=== PATIENT | female | born 1950 | race Caucasian/White ===

== ENCOUNTER → 2018-05-22 10:23 | Outpatient (CLI) | payer MEDICARE, OTHER, SELFPAY ==
[2018-05-21 14:14] VITALS: BMI 28.1
[2018-05-27 12:36] LABS: HPV Reflexed? NOT INDICATED
== END ==
PROVIDERS: Family Provider Family Medicine; PCP Family Medicine; Referring Provider Family Medicine; Visit Provider Family Medicine
DX: Z01.419 Encounter for gynecological examination (general) (routine) without abnormal findings (principal)
CPT/HCPCS: 88175; G0145

== ENCOUNTER → 2019-02-23 | Outpatient (CLI) | payer MEDICARE, OTHER, SELFPAY ==
[2019-02-23 10:35] VITALS: BMI 28.1
--- NOTE | 2019-02-23 11:23 | EKG12_ITS ---
Test Reason : ROUTINE Blood Pressure : / mmHG Vent. Rate : 064 BPM Atrial Rate : 064 BPM P-R Int : 136 ms QRS Dur : 126 ms QT Int : 426 ms P-R-T Axes : 034 -01 009 degrees QTc Int : 439 ms Normal sinus rhythm Right bundle branch block Abnormal ECG Confirmed by DEANDRE SPRINGER, CLINT ([id number]), research editor CHANTALE WILKINSON ([id number]) on 02/24/2019 8:41:21 AM Referred By: Storm Gary Confirmed By:CLINT CARRERA MD
== END | disposition home or self-care (01) ==
LOC: CVS 11:21
PROVIDERS: Family Provider Family Medicine; PCP Family Medicine; Referring Provider Family Medicine; Visit Provider Family Medicine
DX: R07.9 Chest pain, unspecified (principal)
CPT/HCPCS: 93005

== ENCOUNTER → 2019-03-15 | Outpatient (CLI) | payer MEDICARE, OTHER, SELFPAY ==
[2019-03-15 11:13] VITALS: BMI 28.1
[2019-03-16 14:30] LABS: Probe Check PASS; Sample Adequacy Control PASS; Specimen Processing Control PASS; Trichomonas Vag DNA by PCR Negative (Negative)
[2019-03-16 14:45] LABS: Chlamydia Trachomatis by PCR Negative (Negative); Neisserai gonorrhoeae by PCR Negative (Negative); Probe Check PASS; Sample Adequacy Control PASS; Specimen Processing Control PASS
== END | disposition home or self-care (01) ==
LOC: BIMLAB 03-16 08:23
PROVIDERS: Family Provider Family Medicine; PCP Family Medicine; Visit Provider Internal Medicine
DX: N89.8 Other specified noninflammatory disorders of vagina (principal); Z71.1 Person with feared health complaint in whom no diagnosis is made
CPT/HCPCS: 87491; 87591; 87661

== ENCOUNTER → 2019-04-02 06:41 | Outpatient (CLI) | payer MEDICARE, OTHER, SELFPAY ==
[2019-02-23 10:35] VITALS: BMI 28.1
[2019-03-15 11:13] VITALS: BMI 28.1
--- NOTE | 2019-04-02 13:33 | STRESSREP ---
Stress Test Report Exercise myocardial perfusion stress test. 69-year-old lady with a history of chest pain. Stress protocol: Resting EKG demonstrates normal sinus rhythm with a rate of 70 bpm normal intervals are noted resting blood pressures 114/72 mmHg. Right bundle branch block is noted. The patient exercised according to regular Ariel protocol for total duration of 6 minutes and 30 seconds. The maximum heart rate attained was 146 bpm which is 96% maximum predicted heart rate and maximum workload was 7.7 metabolic equivalents. Patient maintained sinus rhythm throughout the recording. At rest there were no ST or T wave changes noted suggest ischemia peak exercise upsloping ST changes only were noted with no meet the criteria for ischemia. No clinical angina was noted. The resting blood pressures 114/72 with a peak blood pressure 162/78 mmHg. Myocardial perfusion protocol. 10.0 mCi of technetium 99m sestamibi was injected at rest. The patient exercised according to regular Ariel protocol for 6-1/2 minutes at peak exercise 30.0 mCi of technetium 99m sestamibi was injected stress images were obtained stress and rest images were reconstructed and compared in the short axis vertical long horizontal long axis. Gated images were also obtained Perfusion SPECT analysis: Review of the stress images demonstrate normal uptake of tracer noted in all areas of the myocardium the resting images similar demonstrate normal uptake of tracer noted in all areas of myocardium. No areas of reversibility or no suggest ischemia no previous infarct is noted. Gated SPECT analysis: The gated ejection fraction is noted to be 89%. Conclusion: Normal exercise myocardial perfusion stress test at a moderate workload. Preserved ejection fraction.
== END ==
PROVIDERS: Family Provider Family Medicine; PCP Family Medicine; Referring Provider Family Medicine; Visit Provider Family Medicine
DX: R07.9 Chest pain, unspecified (principal)
CPT/HCPCS: 78452; 93017; A9500; A4216

== ENCOUNTER → 2019-04-06 12:10 | Outpatient (CLI) | payer MEDICARE, OTHER, SELFPAY ==
[2019-04-06 11:15] VITALS: BMI 28.1
--- NOTE | 2019-04-06 12:12 | RAD_ITS ---
HISTORY: MEDIAL ELBOW PAIN, OLD INJURY 3 YEARS AGO ACTING UP AGAIN EXAMINATION/TECHNIQUE: XR right elbow 3 views COMPARISON: None FINDINGS: No fracture or dislocation., Normal bony alignment. Joint spaces are preserved. No joint effusion identified. Moderately large hypertrophic spur of the olecranon process at the triceps tendon insertion. RAD/Elbow min 3 Views IMPRESSION: 1. No fracture or acute disease. No joint effusion identified. 2. Olecranon process degenerative spurring. 3. If symptoms persist and epicondylitis is a consideration, further correlation with MR exam could be obtained. at 0224 Reported and signed by: Zach Elena MD Electronically Signed: Zach Elena, at 2:23 EST Tel , Service support ,
== END ==
PROVIDERS: Family Provider Family Medicine; PCP Family Medicine; Referring Provider Family Medicine; Visit Provider Family Medicine
DX: M25.521 Pain in right elbow (principal)
CPT/HCPCS: 73080

== ENCOUNTER → 2019-07-27 | Outpatient (CLI) | payer MEDICARE, OTHER, SELFPAY ==
[2019-07-27 08:48] VITALS: BMI 28.1
== END | disposition home or self-care (01) ==
LOC: LABSPEC 11:00
PROVIDERS: PCP Family Medicine; Referring Provider Family Medicine; Visit Provider Family Medicine
DX: Z20.2 Contact with and (suspected) exposure to infections with a predominantly sexual mode of transmission (principal)

== ENCOUNTER → 2020-08-01 13:45 | Outpatient (CLI) | payer MEDICARE, SELFPAY ==
[2020-08-01 12:58] VITALS: BMI 28.9
[2020-08-01 15:32] LABS: Anion Gap 6 (5-15); BUN 21 mg/dL (7-18); Calcium,Total 9.5 mg/dL (8.5-10.1); Chloride 102 mmol/L (98-107); Creatinine, Serum 0.84 mg/dL (0.55-1.02); EST Glomerular Filtration Rate 71 mL/min (>60); Est Glom Filt Rate - Afr Amer 86 mL/min (>60); Glucose 83 mg/dL (74-106); Potassium 4.7 mmol/L (3.5-5.1); Sodium Level 137 mmol/L (136-145)
[2020-08-04 17:10] LABS: Chlamydia By Nucleic Acid AMP Negative (Negative)
[2020-08-04 20:33] LABS: Gonococcus By Nucleic Acid AMP Negative (Negative)
== END ==
PROVIDERS: PCP Family Medicine; Referring Provider Family Medicine; Visit Provider Family Medicine
DX: R35.0 Frequency of micturition (principal); Z20.2 Contact with and (suspected) exposure to infections with a predominantly sexual mode of transmission
CPT/HCPCS: 36415; 80048; 87491; 87591; 88175; G0145

== ENCOUNTER 2021-05-22 09:49 | Emergency (ER) | payer MEDICARE, SELFPAY ==
[2021-05-22 09:51] VITALS: BP 116/63; PULSE 107; RESP 24; TEMP 36.8; O2SAT 95; BMI 26.4
--- NOTE | 2021-05-22 10:22 | RAD_ITS ---
STUDY: X-RAY CHEST REASON FOR EXAM: Female, 71 years old. Increasing shortness of breath. Covid. TECHNIQUE: Single AP portable view of the chest. COMPARISON: None. FINDINGS: Mild bibasilar pulmonary infiltrates slightly worse on the left side. Calcified granuloma in the left lower lobe. There is no demonstrated pleural abnormality. Normal size heart. Normal mediastinum and kari. Normal visualized pulmonary arteries. Normal visualized aortic arch and descending thoracic aorta. Normal visualized thoracic spine. Normal visualized ribs, clavicles, and shoulders. Prior cholecystectomy. RAD/Chest 1 View (Portable) IMPRESSION: Mild degree of patchy bibasilar infiltrates worse on the left side. Electronically Signed: Anish Trevizo MD at 10:59 EST , Service support ,
[2021-05-22 11:32] LABS: Absolute Lymphocyte Count 3.08 X10^3/uL (0.83-4.51); Absolute Neutrophil Count 9.5 X10^3/uL (2.0-7.7); Basophil# 0.05 X10^3/uL; Basophil% 0.3 % (0-1); Eosinophil# 0.05 X10^3/uL; Eosinophils% 0.3 % (0-5); Hematocrit 41.2 % (37-47); Hemoglobin 13.6 g/dL (12.0-15.0); Lymphocyte # 3.08 X10^3/ul (0.83-4.51); Lymphocyte % 20.9 % (19-41); Mean Corpuscular Hgb 29.2 pg (27.0-32.0); Mean Corpuscular Volume 88.6 fL (81-99); Mean Platelet Vol. 10.6 fl (6.2-12.0); Monocyte# 1.98 X10^3/uL; Monocyte% 13.4 % (0-10); NRBC Flagged by Analyzer 0 % (0-5); Neutrophil # 9.51 X10^3/uL (2.7-7.7); Neutrophil % 64.6 % (47-70); POSITIVE DIFFERENTIAL YES; Platelet Count 375 K/mm3 (150-450); RBC Distribution Width SD 42.3 fl (35.1-43.9); Red Blood Count 4.65 M/mm3 (4.2-5.4); White Blood Count 14.8 K/mm3 (4.4-11.0)
[2021-05-22 11:33] LABS: Differential Indicated SCAN CRITERIA MET
[2021-05-22 11:47] LABS: ALB/GLOB Ratio 0.5 RATIO (0.9-2.4); AST(SGOT) 69 U/L (15-37); Alanine Aminotransfer ALT/SGPT 79 U/L (13-56); Albumin, Serum 2.7 g/dL (3.2-5.0); Alkaline Phosphatase 254 U/L (45-117); Anion Gap 7 (5-15); BUN 19 mg/dL (7-18); BUN/Creat Ratio 21.5 RATIO (10-20); Calcium,Total 9.7 mg/dL (8.5-10.1); Chloride 103 mmol/L (98-107); Creatinine, Serum 0.88 mg/dL (0.55-1.02); EST Glomerular Filtration Rate 67 mL/min (>60); Est Glom Filt Rate - Afr Amer 81 mL/min (>60); Estimated Creatinine Clearance 42.12 ml/min; Glucose 97 mg/dL (74-106); Potassium 4.5 mmol/L (3.5-5.1); Protein, Total 7.7 g/dL (6.4-8.2); Sodium Level 136 mmol/L (136-145)
--- NOTE | 2021-05-22 12:23 | EX.ED.DYSGE1 ---
HPI History of Present Illness Chief Complaint: Shortness of Breath Narrative Narrative: Patient was recently diagnosed with COVID. She is about day 9 of symptoms. She developed progressive weakness. Chief complaint says shortness of breath however patient does not have shortness of breath her main complaint is weakness and decreased p.o. intake. No fevers or chills. No back pain or tearing sensation, no chest pain or pleuritic component. No lower extremity edema or calf pain. PFSH PFS Medical History Acute otitis externa of left ear Acute otitis media, left Cataracts, bilateral Chronic bronchitis Chronic headaches GERD (gastroesophageal reflux disease) Hormone deficiency IBS (irritable bowel syndrome) Impacted cerumen, left ear Skin cancer Vision problems Home Medications Oscal PO DAILY 05/21/18 [History Last Taken Unknown] magnesium hydroxide 400 mg/5 mL oral suspension 5 ml PO QHS PRN 05/21/18 [History Last Taken Unknown] multivitamin 1 tab PO DAILY 05/21/18 [History Last Taken Unknown] elderberry fruit 200 mg capsule mg PO cap 04/06/19 [History Last Taken Unknown] esomeprazole magnesium 20 mg capsule,delayed release 20 mg PO DAILY 08/01/20 [History Last Taken Unknown] conjugated estrogens 1.25 mg tablet 2.5 mg PO DAILY #180 tab 10/11/20 [Rx Last Taken Unknown] benzonatate 100 mg capsule 100 mg PO TID PRN #30 cap 05/18/21 [Rx Last Taken Unknown] guaifenesin 400 mg tablet 400 mg PO TID PRN #30 tab 05/18/21 [Rx Last Taken Unknown] ondansetron 4 mg disintegrating tablet 4 mg PO Q8H PRN #15 tab 05/18/21 [Rx Last Taken Unknown] Allergy/AdvReac Type Severity Reaction Status Date / Time No Known Allergies Allergy Verified 05/22/21 09:54 Family History Other Arthritis Colon cancer Skin cancer Surgical History History of cataract extraction History of cholecystectomy History of hysterectomy Social History Smoking Status: Former smoker alcohol intake: never substance use type: does not use frequency: 3-4 times per week ROS ROS ED ROS Narrative Past medical history: Reviewed Medications: Reviewed Social history: Noncontributory Review of systems: All systems negative except as indicated General: No fever. Generalized weakness as in HPI Eyes: No visual changes ENT: No upper airway congestion, normal voice Neck: No neck pain Cardiovascular: No chest pain Respiratory: No shortness of breath. A slight cough is present. Gastrointestinal: No abdominal pain, nausea vomiting or diarrhea Genitourinary: No dysuria Musculoskeletal: Some myalgias. Skin: No rash Neurological: No memory loss, confusion or any focal weakness Psych: No recent behavioral changes Hematologic: No easy bleeding or easy bruising EXAM Physical Exam Narrative Exam Narrative: Physical exam General: Patient appears relatively comfortable in the bed, she does not appear acutely ill. Head: Normocephalic, Atraumatic Eyes: Conjunctiva not pale ENT: Somewhat dry mucous membranes Neck: Supple, Nontender, No lymphadenopathy Cardiovascular: Regular rate, Regular rhythm Respiratory: No distress, CTA bilaterally Abdomen: Soft, Nontender, Nondistended Back: Nontender, Normal Inspection. Negative for: CVA tenderness Extremities: Nontender, No edema Skin: Normal color, No rash Neurological: Alert, Normal Strength, Normal Sensation Psychological: Normal affect Const Vital Signs: 05/22/21 09:51 05/22/21 11:15 Temperature 98.2 F Temperature Source Oral Pulse Rate 107 H Respiratory Rate 24 H Respiratory Effort Short of Breath Respiratory Depth Normal Respiratory Pattern Normal Blood Pressure 116/63 Blood Pressure Mean 80 Pulse Ox 95 Oxygen Delivery Method Room Air Room Air MDM MDM MDM Narrative Medical decision making narrative: Patient has an overall unremarkable exam it does seem like she has some slight pulmonary involvement, however she is oxygenating well. At this time she has no signs or symptoms of thromboembolic disease, it is also only day 9 thus unlikely for PE. I did mention to her signs and symptoms if she has any symptoms she is to return. As of today there are no recommendations for thromboembolic prophylaxis in COVID patients. She will be discharged in stable condition Lab Data Labs: Laboratory Results - last 24 hr 05/22/21 05/22/21 11:25 11:25 WBC 14.8 H RBC 4.65 Hgb 13.6 Hct 41.2 MCV 88.6 MCH 29.2 MCHC 33.0 RDW Std Deviation 42.3 RDW Coeff of Jonathan 13.0 Plt Count 375 MPV 10.6 Immature Gran % (Auto) 0.500 Neut % (Auto) 64.6 Lymph % (Auto) 20.9 [place] % (Auto) 13.4 H Eos % (Auto) 0.3 Baso % (Auto) 0.3 Absolute Neuts (auto) 9.5 H Absolute Lymphs (auto) 3.08 Nucleated RBC % 0 Sodium 136 Potassium 4.5 Chloride 103 Carbon Dioxide 26.0 Anion Gap 7 BUN 19 H Creatinine 0.88 Estim Creat Clear Calc 42.12 Est GFR (MDRD) Af Amer 81 Est GFR (MDRD) Non-Af 67 BUN/Creatinine Ratio 21.5 H Glucose 97 Calcium 9.7 Total Bilirubin 0.60 AST 69 H ALT 79 H Alkaline Phosphatase 254 H Total Protein 7.7 Albumin 2.7 L Globulin 5.0 H Albumin/Globulin Ratio 0.5 L Radiography Diagnostic Testing: Clinical Impression(s) from Imaging Studies Chest X-Ray 05/22/21 10:22 IMPRESSION: Mild degree of patchy bibasilar infiltrates worse on the left side. Electronically Signed: Anish Trevizo MD at 10:59 EST , Service support , Discharge Plan Triage Chief Complaint: Shortness of Breath ED Provider: Blu Rosales Dx/Rx/DC Orders Clinical Impression: COVID, Dehydration Instructions: Symptoms of COVID-19 Infection Prescriptions: No Action multivitamin [Multiple Vitamins] tablet 1 tab PO DAILY RF: 0 magnesium hydroxide [Milk of Magnesia] 400 mg/5 mL suspension 5 ml PO QHS PRNRF: 0 Oscal PO DAILY RF: 0 elderberry fruit 200 mg capsule 200 mg capsule PO RF: 0 esomeprazole magnesium [Nexium] 20 mg capsule,delayed release(DR/EC) 20 mg PO DAILY RF: 0 benzonatate 100 mg capsule 100 mg PO TID PRN (Reason: cough) Qty: 30 RF: 0 guaifenesin 400 mg tablet 400 mg PO TID PRN (Reason: congestion, cough) Qty: 30 RF: 0 ondansetron 4 mg tablet,disintegrating 4 mg PO Q8H PRN (Reason: nausea and vomiting) Qty: 15 RF: 0 conjugated estrogens 1.25 mg tablet 2.5 mg PO DAILY Qty: 180 RF: 3 Primary Care Provider: Storm Gary Referrals: Storm Gary, [Primary Care Provider] - 2 Days Disposition Disposition: Home, Self Care
[2021-05-23 13:14] LABS: Pathologist Review Reviewed
== END 2021-05-22 12:49 | disposition home or self-care (01) ==
PROVIDERS: Emergency Provider Emergency Medicine; PCP Family Medicine; Visit Provider Emergency Medicine
DX: U07.1 COVID-19 (principal); E86.0 Dehydration; Z87.891 Personal history of nicotine dependence
CPT/HCPCS: 71045; 80053; 85025; 96360; 99282; J7030

== ENCOUNTER 2021-11-26 06:46 | Outpatient (RCR) | payer MEDICARE, SELFPAY ==
--- NOTE | 2021-11-26 07:32 | HP.PTEVAL_ITS ---
Patient's Visit Information POOL MOORE is a 71 year old F referred to Physical Therapy by ADALID Rojas with a diagnosis of vertigo. Date of Evaluation: 11/26/21 Physical Therapist: Ryan Carballo DPT, OCS, CSCS - Visit Plan Frequency: 1x/Week Duration: 2-4 Weeks Plan: weekly as needed x 2-4 for positional monitor and treat. - Subjective I have positional vertigo. Been over a month since it started. Started when she turned in bed with spinning. Gradually has worsened and felt unsteady. No treatment as she just went to doctor last week and got meds meclizine which just makes her tired. Only took it twice as it makes her tired. Over this past weekend it is improving. Still gets it if she looks up into cupboard some minor spinning or in bed with runing. Moving slower in these situations. Balance not bad unless she is spinning. One fall on November 12 as she was moving fast catching sandal on step. No injuries except tearing up knee. Still minimally tender but improving. Activities pretty normal but avoids looking up and moves slow, bends gingerly. Not employed. Sleeping Ok. Spends day not doing much but mows lawn and pulls weeds and is still doing these on riding mower. - Objective Walks I into PT and transfers bed and chair I. Up steps reciprocally without rail, descend uses rail. Cervical aROM is hesitant to extend but WFL, rotations are full adn painfree. UE AROM WFL. - R hallpike rachel. + L hallpike rachel for up torsional nystagmus 12 seconds. treated with French and then - HD test. - Balance/Special Test Scores Functional Gait Assessment Score: 28 % Disability: 6.6700 Dizziness Score: 26 - Goals Goal 1:: abolish dizzyness 100% Goal Time Frame: 2-4 Weeks Goal 2:: Pt walk and look up without symptoms or hesitation Goal Time Frame: 2-4 Weeks - Rehabilitation Potential Physical Therapy Diagnosis: BPPV R post canalithiasis Rehabilitation Potential: Good - Anticipated Interventions Patient/Client Instruction: Educate patient on: Condition, Plan of Care For the Purpose of:: To increase tolerance to activity/condition/position Comment: positional treatments For the Purpose of:: To increase tolerance to activity/condition/position Thank you for the opportunity to evaluate your patient. For Medicare and Medicare HMO plans, please review the plan of care and approve it. It will need to be FAXED BACK to us at [phone] for Medicare purposes. For Medicare only, by signing this I certify the plan of care. Please let me know if there are questions or concerns regarding this plan of care. Physician Signature: Date:
--- NOTE | 2021-12-03 15:30 | HP.PT.NRP ---
POOL MOORE was seen in my office for initial evaluation on 11/26/21. The following Plan of Care was established for this patient: Initial Frequency: 1x/Week Initial Duration: 2-4 Weeks Patient/Client Instruction: Educate patient on: Condition, Plan of Care For the Purpose of:: To increase tolerance to activity/condition/position For the Purpose of:: To increase tolerance to activity/condition/position This patient was last seen in our office 11/26/21. Pertinent comments regarding their Physical therapy will appear below: Pt seen one visit and is all better. She was treated with French maneuver . When we called to schedule her f/u, she stated she did not need to return. At this point I will be discontinuing this patient from physical therapy. I would be happy to see this patient again in the future if found appropriate by the physician. Thank you! Ryan Carballo, DPT, OCS, CSCS Balance/Gait/Functional tests - Balance/Special Test Scores Functional Gait Assessment Score: 28 % Disability: 6.6700 Dizziness Score: 26
== END 2021-11-26 19:00 | disposition home or self-care (01) ==
LOC: PT 06:46
PROVIDERS: PCP Family Medicine; Referring Provider Physician Assistant; Visit Provider Physician Assistant
DX: R42 Dizziness and giddiness (principal)
CPT/HCPCS: 97161

== ENCOUNTER → 2022-02-26 | Outpatient (CLI) | payer MEDICARE, SELFPAY ==
[2022-02-26 15:17] LABS: Absolute Lymphocyte Count 4.39 X10^3/uL (0.83-4.51); Basophil# 0.05 X10^3/uL; Basophil% 0.4 % (0-1); Eosinophil# 0.04 X10^3/uL; Eosinophils% 0.3 % (0-5); Hemoglobin 12.5 g/dL (12.0-15.0); Lymphocyte # 4.39 X10^3/ul (0.83-4.51); Lymphocyte % 37.9 % (19-41); Mean Corp Hgb Conc 32.1 g/dL (32-36); Mean Corpuscular Hgb 29.6 pg (27.0-32.0); Mean Corpuscular Volume 92.4 fL (81-99); Mean Platelet Vol. 11.6 fl (6.2-12.0); Monocyte# 1.03 X10^3/uL; Monocyte% 8.9 % (0-10); NRBC Flagged by Analyzer 0 % (0-5); Neutrophil # 6.02 X10^3/uL (2.7-7.7); Platelet Count 321 K/mm3 (150-450); RBC Distribution Width CV 13.5 % (11.6-14.6); Red Blood Count 4.22 M/mm3 (4.2-5.4); White Blood Count 11.6 K/mm3 (4.4-11.0)
[2022-02-26 15:46] LABS: ALB/GLOB Ratio 0.8 RATIO (0.9-2.4); AST(SGOT) 15 U/L (15-37); Alanine Aminotransfer ALT/SGPT 25 U/L (13-56); Albumin, Serum 3.4 g/dL (3.2-5.0); Alkaline Phosphatase 69 U/L (45-117); Anion Gap 5 (5-15); BUN 22 mg/dL (7-18); BUN/Creat Ratio 25.7 RATIO (10-20); Calcium,Total 9.3 mg/dL (8.5-10.1); Chloride 105 mmol/L (98-107); Creatinine, Serum 0.86 mg/dL (0.55-1.02); EST Glomerular Filtration Rate 69 mL/min (>60); Est Glom Filt Rate - Afr Amer 84 mL/min (>60); Globulin 4.1 g/dL (2.2-4.2); Glucose 89 mg/dL (74-106); Potassium 4.7 mmol/L (3.5-5.1); Protein, Total 7.5 g/dL (6.4-8.2); Sodium Level 136 mmol/L (136-145)
== END | disposition home or self-care (01) ==
PROVIDERS: PCP Family Medicine; Referring Provider Family Medicine; Visit Provider Family Medicine
DX: M25.521 Pain in right elbow (principal); K21.9 Gastro-esophageal reflux disease without esophagitis; F41.9 Anxiety disorder, unspecified
CPT/HCPCS: 36415; 80053; 84443; 85025

== ENCOUNTER → 2022-08-13 | Outpatient (CLI) | payer MEDICARE, SELFPAY ==
[2022-08-13 12:29] LABS: Absolute Lymphocyte Count 3.25 X10^3/uL (0.83-4.51); Absolute Neutrophil Count 4.8 X10^3/uL (2.0-7.7); Eosinophil# 0.12 X10^3/uL; Eosinophils% 1.2 % (0-5); Hematocrit 39.7 % (37-47); Hemoglobin 12.7 g/dL (12.0-15.0); Lymphocyte # 3.25 X10^3/ul (0.83-4.51); Lymphocyte % 33.4 % (19-41); Mean Corpuscular Hgb 29.5 pg (27.0-32.0); Mean Corpuscular Volume 92.3 fL (81-99); Mean Platelet Vol. 11.3 fl (6.2-12.0); Monocyte# 1.38 X10^3/uL; Monocyte% 14.2 % (0-10); NRBC Flagged by Analyzer 0 % (0-5); Neutrophil # 4.83 X10^3/uL (2.7-7.7); Neutrophil % 49.8 % (47-70); Platelet Count 415 K/mm3 (150-450); RBC Distribution Width CV 13.3 % (11.6-14.6); RBC Distribution Width SD 45.2 fl (35.1-43.9); White Blood Count 9.7 K/mm3 (4.4-11.0)
[2022-08-13 12:46] LABS: ALB/GLOB Ratio 0.7 RATIO (0.9-2.4); AST(SGOT) 61 U/L (15-37); Alanine Aminotransfer ALT/SGPT 60 U/L (13-56); Albumin, Serum 2.9 g/dL (3.2-5.0); Alkaline Phosphatase 147 U/L (45-117); Anion Gap 5 (5-15); BUN 27 mg/dL (7-18); BUN/Creat Ratio 29.3 RATIO (10-20); Calcium,Total 9.1 mg/dL (8.5-10.1); Chloride 104 mmol/L (98-107); Creatinine, Serum 0.92 mg/dL (0.55-1.02); EST Glomerular Filtration Rate 63 mL/min (>60); Est Glom Filt Rate - Afr Amer 77 mL/min (>60); Globulin 4.4 g/dL (2.2-4.2); Glucose 118 mg/dL (74-106); Magnesium 2.1 mg/dL (1.6-2.6); Potassium 4.4 mmol/L (3.5-5.1); Protein, Total 7.3 g/dL (6.4-8.2); Sodium Level 135 mmol/L (136-145)
== END | disposition home or self-care (01) ==
LOC: BIMLAB 10:27
PROVIDERS: PCP Family Medicine; Referring Provider Nurse Practitioner Family; Visit Provider Nurse Practitioner Family
DX: R19.7 Diarrhea, unspecified (principal); E83.42 Hypomagnesemia; D72.829 Elevated white blood cell count, unspecified; K58.9 Irritable bowel syndrome, unspecified
CPT/HCPCS: 36415; 80053; 83735; 85025; 87493; 87506

== ENCOUNTER 2022-12-18 13:42 | Outpatient (RCR) | payer MEDICARE, SELFPAY ==
--- NOTE | 2022-12-18 14:20 | HP.PTEVAL_ITS ---
Patient's Visit Information Visit Information Visit Information: POOL MOORE is a 72 year old F referred to Physical Therapy by Dr. Storm Gary DO with a diagnosis of BPPV. Date of Evaluation: 12/18/22 Physical Therapist: Ryan Carballo, ROSAT, OCS, CSCS Visit Plan Frequency: 1-2x /Week Duration: 2-4 Weeks Plan: 1-2x/week for 2-4 weeks as needed for positional treatements and exercises as needed. monitor oculomotor as needed. Subjective Subjective: Got vertigo back again 3 weeks ago. Had it last year in November and fixed in one session. Started spinning with bending and lasted 10 seconds. Now gets it some days and not others. Mostly with looking up or bending over, or lying in bed. Feels pretty normal in between episodes. Activitiesa are normal in between episodes. Sleeping OK Not employed. Objective Objective: walks I into and out of PT, trasnfers I bed and chair, steps I with rail reciprocally. Good painfree cervical AROM - L HD + R HD for up torsional nystagmus slight and dizzy feeling short duration. Treated with r modified kyree. Balance/Special Test Scores Dizziness Score: 24 Goals Goal 1:: abolish dizzyness at home Goal Time Frame: 2-4 Weeks Goal 2:: Bend over safely without hesitation Goal Time Frame: 2-4 Weeks Goal 3:: I management of conditiion Goal Time Frame: 2-4 Weeks Goal 4:: 5 or less DHI Goal Time Frame: 2-4 Weeks Rehabilitation Potential Physical Therapy Diagnosis: R post canal BPPV Rehabilitation Potential: Good Anticipated Interventions Patient/Client Instruction: Educate patient on: Condition and Plan of Care For the Purpose of:: To increase tolerance to activity/condition/position Comment: postional ex adn maneuvers, vestibular For the Purpose of:: To increase tolerance to activity/condition/position Text: Thank you for the opportunity to evaluate your patient. For Medicare and Medicare HMO plans, please review the plan of care and approve it. It will need to be FAXED BACK to us at [phone] for Medicare purposes. For Medicare only, by signing this I certify the plan of care. Please let me know if there are questions or concerns regarding this plan of care. Physician Signature: Date:
--- NOTE | 2023-02-13 15:26 | HP.PT.NRP ---
Patient Information Patient Information: POOL MOORE was seen in my office for initial evaluation on 12/18/22. The following Plan of Care was established for this patient: POC Established Initial Frequency: 1-2x /Week Initial Duration: 2-4 Weeks Anticipated Interventions Patient/Client Instruction: Educate patient on: Condition and Plan of Care For the Purpose of:: To increase tolerance to activity/condition/position For the Purpose of:: To increase tolerance to activity/condition/position Last Seen Last Seen: This patient was last seen in our office 12/18/22. Pertinent comments regarding their Physical therapy will appear below: Pt seen one visit of POC for positional vertigo and was treated and POC established. She did not return for any further visits. At this point, it has been almost two months and I will discontinue due to nonattendance. At this point I will be discontinuing this patient from physical therapy. I would be happy to see this patient again in the future if found appropriate by the physician. Thank you! Ryan Carballo, DPT, OCS, CSCS Balance/Gait/Functional tests Balance/Special Test Scores Dizziness Score: 24
== END 2022-12-18 19:00 | disposition home or self-care (01) ==
LOC: PT 13:42
PROVIDERS: PCP Family Medicine; Referring Provider Family Medicine; Visit Provider Family Medicine
DX: H81.10 Benign paroxysmal vertigo, unspecified ear (principal)
CPT/HCPCS: 97161

== ENCOUNTER → 2023-01-22 | Outpatient (CLI) | payer MEDICARE, SELFPAY ==
--- NOTE | 2023-01-22 14:14 | RAD_ITS ---
STUDY: X-RAY - ABDOMEN/PELVIS REASON FOR EXAM: Female, 72 years old. Abdominal pain TECHNIQUE: Frontal views COMPARISON: None. FINDINGS: Normal visualized lung bases. There is an unremarkable bowel gas pattern. There is no demonstrated free abdominal air. Surgical clips in the right upper quadrant. Calcifications in the left lower quadrant likely related to a calcified splenic artery. Normal soft tissue structures. Normal visualized osseous structures. RAD/Abd Inc Decub and/or Erect IMPRESSION: No acute pathology of the abdomen and pelvis. Electronically Signed: Cameron Cruz DO at 17:28 EDT Reading Location ID and State: [facility] / [place] Tel [phone], Service support ,
== END | disposition home or self-care (01) ==
LOC: LABSPEC 07:04 → RAD 14:13
PROVIDERS: PCP Family Medicine; Referring Provider Family Medicine; Visit Provider Family Medicine
DX: N39.0 Urinary tract infection, site not specified (principal)
CPT/HCPCS: 74019; 87077; 87086; 87088; 87186

== ENCOUNTER → 2023-02-13 | Outpatient (CLI) | payer MEDICARE, SELFPAY ==
[2023-02-13 11:56] LABS: Bacteria 0 SEEN /hpf (None Seen); Mucous, Urine 0 SEEN /hpf (<or=2+)
[2023-02-13 13:32] LABS: ALB/GLOB Ratio 0.8 RATIO (0.9-2.4); AST(SGOT) 20 U/L (15-37); Alanine Aminotransfer ALT/SGPT 27 U/L (13-56); Albumin, Serum 3.3 g/dL (3.2-5.0); Alkaline Phosphatase 75 U/L (45-117); Anion Gap 7 (5-15); BUN 26 mg/dL (7-18); BUN/Creat Ratio 30.1 RATIO (10-20); Calcium,Total 9.3 mg/dL (8.5-10.1); Chloride 105 mmol/L (98-107); Creatinine, Serum 0.86 mg/dL (0.55-1.02); EST Glomerular Filtration Rate 68 mL/min (>60); Est Glom Filt Rate - Afr Amer 83 mL/min (>60); Globulin 3.9 g/dL (2.2-4.2); Glucose 90 mg/dL (74-106); Potassium 4.3 mmol/L (3.5-5.1); Protein, Total 7.2 g/dL (6.4-8.2); Sodium Level 135 mmol/L (136-145); T4 Free Direct 0.69 ng/dL (0.76-1.46); Thyroid Stim Hormone (TSH) 9.78 uIU/mL (0.358-3.74)
[2023-02-13 15:05] LABS: Color, Urine Yellow (Yellow); Glucose, Dipstick Normal (Normal); Ketone-Dipstick Negative (Negative); Leukocyte Esterase-Dipstick Negative /ul (Negative); Nitrite-Dipstick Negative (Negative); Occult Blood-Urine Negative /ul (Negative); Protein-Dipstick Negative (Negative); Urine Bilirubin Dipstick Negative (Negative); Urine Clarity Clear (Clear); Urine Urobilinogen Normal (Normal)
[2023-02-13 15:27] LABS: Red Blood Cells-Urine 0-5 SEEN /hpf (0-5); Squamous Epithelial Cells - UA 0-5 SEEN /hpf (5-10); White Blood Cells 0-5 SEEN /hpf (0-5)
[2023-02-13 15:28] LABS: Amorphous Sediment 2+
== END | disposition home or self-care (01) ==
LOC: BIMLAB 11:32
PROVIDERS: PCP Family Medicine; Visit Provider Family Medicine
DX: F41.9 Anxiety disorder, unspecified (principal); R10.84 Generalized abdominal pain; N39.0 Urinary tract infection, site not specified
CPT/HCPCS: 36415; 80053; 81001; 84439; 84443

== ENCOUNTER → 2023-04-16 | Outpatient (CLI) | payer MEDICARE, SELFPAY ==
[2023-04-18 15:08] LABS: Endomysial Antibody IgA Negative (Negative); Immunoglobulin A 202 mg/dL (64-422); t-Transglutaminase IgA <2 U/mL (0-3)
== END | disposition home or self-care (01) ==
PROVIDERS: PCP Family Medicine; Referring Provider Internal Medicine Gastroenterology; Visit Provider Internal Medicine Gastroenterology
DX: R10.9 Unspecified abdominal pain (principal)
CPT/HCPCS: 36415; 82784; 83516; 86140; 86255

== ENCOUNTER 2023-08-28 12:45 | Outpatient (RCR) | payer MEDICARE, SELFPAY ==
--- NOTE | 2023-08-28 13:45 | HP.PTEVAL_ITS ---
Patient's Visit Information Visit Information Visit Information: POOL MOORE is a 73 year old F referred to Physical Therapy by Dr. Storm Gary DO with a diagnosis of BPPV. Date of Evaluation: 08/28/23 Physical Therapist: Ryan Carballo, DPT, OCS, CSCS Visit Plan Frequency: 1-2x /Week Duration: 4 Weeks Plan: 1-2x/week for 4 weeks as needed for positional check and treatments adn education Treated today with R kyree x2 then R BBQ roll and education on BD ex 8 reps daily if dizzy persists. Subjective Subjective: Started spinning on Friday. Could not do anything. Was fine over the weekend, no sickness. Started rolling in bed in am and spinning started. This morning rolled R and had lie for a minute before satu up. Feels normal in between spinning episdoes with good balance. Avoids ladder. She is screwed if she looks up. Sleep is OK. Spends day doing whatever she wants. Was in [place] today and shopping. Avoid slooking up and moves slow.Cannot bend over. Objective Objective: Walks well. trasnfers I cervical aROM WFL, UE AROM WFL - L hallpike rachel + R hallpike up torsional vs horiz downbeating. Treated with R kyree x 2 and no improvement, treatede with BBQ roll then finsihing L. felt OK after session, slightly nauseous but never got a - test. R Balance/Special Test Scores Functional Gait Assessment Score: 27 % Disability: 10.0000 Dizziness Score: 26 Goals Goal 1:: Abolish dizzyness for 3 days Goal Time Frame: 4-6 Weeks Goal 2:: Pt feel 100% back to normal activities and spoeed Goal Time Frame: 4-6 Weeks Goal 3:: DHI score 10 or less Goal Time Frame: 4-6 Weeks Rehabilitation Potential Physical Therapy Diagnosis: positional vertigo limiting funciton Rehabilitation Potential: Fair Anticipated Interventions Patient/Client Instruction: Educate patient on: Condition and Risk Factors For the Purpose of:: To increase tolerance to activity/condition/position and To improve ability of physical actions for home/community/work/leisure Comment: positional vestibualr exercises For the Purpose of:: To increase tolerance to activity/condition/position and To improve ability of physical actions for home/community/work/leisure Text: Thank you for the opportunity to evaluate your patient. For Medicare and Medicare HMO plans, please review the plan of care and approve it. It will need to be FAXED BACK to us at [phone] for Medicare purposes. For Medicare only, by signing this I certify the plan of care. Please let me know if there are questions or concerns regarding this plan of care. Physician Signature: Date:
--- NOTE | 2023-09-08 08:46 | HP.PT.NRP ---
Patient Information Patient Information: POOL MOORE was seen in my office for initial evaluation on 08/28/23. The following Plan of Care was established for this patient: POC Established Initial Frequency: 1-2x /Week Initial Duration: 4 Weeks Anticipated Interventions Patient/Client Instruction: Educate patient on: Condition and Risk Factors For the Purpose of:: To increase tolerance to activity/condition/position and To improve ability of physical actions for home/community/work/leisure For the Purpose of:: To increase tolerance to activity/condition/position and To improve ability of physical actions for home/community/work/leisure Last Seen Last Seen: This patient was last seen in our office 08/28/23. Pertinent comments regarding their Physical therapy will appear below: Pt seen for one treatment of R sided BPPV and POC 3established. she has called to cancel her visits stating she does not think she needs them. I will discontinue at this time at her request. At this point I will be discontinuing this patient from physical therapy. I would be happy to see this patient again in the future if found appropriate by the physician. Thank you! Ryan Carballo, DPT, OCS, CSCS Balance/Gait/Functional tests Balance/Special Test Scores Functional Gait Assessment Score: 27 % Disability: 10.0000 Dizziness Score: 26
== END 2023-08-28 19:00 | disposition home or self-care (01) ==
LOC: PT 12:45
PROVIDERS: PCP Family Medicine; Referring Provider Family Medicine; Visit Provider Family Medicine
DX: H81.10 Benign paroxysmal vertigo, unspecified ear (principal)
CPT/HCPCS: 97161

== ENCOUNTER → 2023-11-03 | Outpatient (CLI) | payer MEDICARE, SELFPAY ==
[2023-11-03 12:22] LABS: Absolute Lymphocyte Count 6.76 X10^3/uL (0.83-4.51); Absolute Neutrophil Count 6.5 X10^3/uL (2.0-7.7); Basophil# 0.11 X10^3/uL; Basophil% 0.7 % (0-1); Eosinophils% 0.7 % (0-5); Hematocrit 41.2 % (37-47); Hemoglobin 13.3 g/dL (12.0-15.0); Lymphocyte # 6.76 X10^3/ul (0.83-4.51); Mean Corp Hgb Conc 32.3 g/dL (32-36); Mean Corpuscular Hgb 29.2 pg (27.0-32.0); Mean Corpuscular Volume 90.5 fL (81-99); Mean Platelet Vol. 11.7 fl (6.2-12.0); Monocyte# 1.51 X10^3/uL; NRBC Flagged by Analyzer 0 % (0-5); Neutrophil # 6.49 X10^3/uL (2.7-7.7); Neutrophil % 43.2 % (47-70); POSITIVE DIFFERENTIAL YES; Platelet Count 370 K/mm3 (150-450); RBC Distribution Width CV 13.6 % (11.6-14.6); Red Blood Count 4.55 M/mm3 (4.2-5.4)
[2023-11-03 12:34] LABS: Differential Indicated SCAN CRITERIA MET
[2023-11-04 13:40] LABS: Pathologist Review Reviewed
== END | disposition home or self-care (01) ==
LOC: BIMLAB 10:20
PROVIDERS: PCP Family Medicine; Referring Provider Family Medicine; Visit Provider Family Medicine
DX: R53.83 Other fatigue (principal); R05.9 Cough, unspecified
CPT/HCPCS: 84443; 85025

== ENCOUNTER 2024-07-21 09:00 | Outpatient (RCR) | payer MEDICARE, SELFPAY ==
--- NOTE | 2024-07-07 14:22 | HP.PTEVAL ---
Patient's Visit Information Visit Information Visit Information: POOL MOORE is a 74 year old F referred to Physical Therapy by ADALID Lazar with a diagnosis of dizzyness. Date of Evaluation: 07/07/24 Physical Therapist: Ryan Carballo, DPT, OCS, CSCS Visit Plan Frequency: 1-2x /Week Duration: 2-4 Weeks Plan: 1-2x/week as needed 2-4 weeks for 1. positional monitor and treat with vestibular ex L + HD today with eply Subjective Subjective: 2-3 weeks ago insidious onset dizzyness rolling in bed for a numbeer of seconds. Has had this numeerous times and fixes easily. Feels normal in between episodes. Looking up can also cause it. 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 One fall when she was dizzy. Objective Objective: Walks into PT normal and I, safe. [employer]as[employer] chair and bed I today. FGA without AD today. Good balance cervical aROM WFL and no pain or dizzyness but hesitant with L rotation and ext. UE AROM WFL and strength 4-/5, no pain. - R HD + L HD for 10 sec up torsional nystagmus. Treated with modified L kyree adn then gone second trial. Balance/Special Test Scores Functional Gait Assessment Score: 28 % Disability: 6.6700 Dizziness Score: 18 Goals Goal 1:: abolsih dizzyness with turning in bed and bending and looking up Goal Time Frame: 4-6 Weeks Goal 2:: Pt feel 100% back to normal activity and speed Goal Time Frame: 4-6 Weeks Rehabilitation Potential Physical Therapy Diagnosis: BPPV Rehabilitation Potential: Good Anticipated Interventions Patient/Client Instruction: Educate patient on: Condition, Plan of Care and Risk Factors For the Purpose of:: To increase tolerance to activity/condition/position Comment: vestibular- positional For the Purpose of:: To increase tolerance to activity/condition/position Text: Thank you for the opportunity to evaluate your patient. For Medicare and Medicare HMO plans, please review the plan of care and approve it. It will need to be FAXED BACK to us at [phone] for Medicare purposes. For Medicare only, by signing this I certify the plan of care. Please let me know if there are questions or concerns regarding this plan of care. Physician Signature: Date:
--- NOTE | 2024-09-16 15:23 | HP.PT.NRP ---
Patient Information Patient Information: POOL MOORE was seen in my office for initial evaluation on 07/07/24. The following Plan of Care was established for this patient: POC Established Initial Frequency: 1-2x /Week Initial Duration: 2-4 Weeks Anticipated Interventions Patient/Client Instruction: Educate patient on: Condition, Plan of Care and Risk Factors For the Purpose of:: To increase tolerance to activity/condition/position For the Purpose of:: To increase tolerance to activity/condition/position Last Seen Last Seen: This patient was last seen in our office 07/21/24. Pertinent comments regarding their Physical therapy will appear below: Pt seen 3 visits of positional treatments and was 96% better overall. Was to f/u weekly but has not scheduled or returned in over 6 weeks. I will discontinue her at this time. At this point I will be discontinuing this patient from physical therapy. I would be happy to see this patient again in the future if found appropriate by the physician. Thank you! Ryan Carballo, DPT, OCS, CSCS Balance/Gait/Functional tests Balance/Special Test Scores Functional Gait Assessment Score: 28 % Disability: 6.6700 Dizziness Score: 18
== END 2024-07-21 19:00 | disposition home or self-care (01) ==
LOC: PT 09:00
PROVIDERS: PCP Family Medicine; Referring Provider Physician Assistant; Visit Provider Physician Assistant
DX: R42 Dizziness and giddiness (principal)
CPT/HCPCS: 97161; 97530